=== PATIENT | female | born 1980 | race Caucasian/White ===

== ENCOUNTER 2016-06-21 08:27 | Outpatient (CLI) | payer OTHER | END 2016-06-21 23:00 | LOC: LAB SRH 08:27 | DX: Z34.82 Encounter for supervision of other normal pregnancy, second trimester (principal) | CPT/HCPCS: 90039; 90074; 91162; 91163 ==

== ENCOUNTER 2016-09-13 19:00 | Inpatient (IN) | payer BC, OTHER ==
[~2016-09-13] VITALS: Ht 165.1 cm; Wt 75.7 kg
[2016-09-13] MEDS ORDERED: PRENATA1 CHW PO (20:33)
[2016-09-14] VITALS (11 sets, daily range): BP systolic 120–148; BP diastolic 55–100
[2016-09-15 00:30] VITALS: BP 128/58
--- NOTE | 2016-09-15 01:53 | NUR ---
TRANSFERED FROM LABOR AND DELIVERY ROOM 321 TO ROOM 319
[2016-09-15 03:32] VITALS: BP 114/67
[2016-09-15 08:10] VITALS: BP 111/54
[2016-09-15 16:10] VITALS: BP 121/78
--- NOTE | 2016-09-15 18:54 | Provider's Discharge Care Plan ---
Problem, Goal, Plan Problem List 1. Elective induction of labor planned 2. Vaginal delivery Goals: Improve disease control Instructions: Follow up as needed
--- NOTE | 2016-09-15 18:54 | Provider's Discharge Care Plan ---
Problem, Goal, Plan Problem List 1. Elective induction of labor planned 2. Vaginal delivery Goals: Improve disease control Instructions: Follow up as needed
--- NOTE | 2016-09-15 21:25 | NUR ---
PATIENT D/C HOME WITH NB AND SIGNIFICANT OTHER. IV D/C'D CATHETER INTACT. D/C TEACHING AND PAPERWORK DONE. PATIENT VERBALIZES UNDERSTANDING OF INSTRUCTIONS AND WILL FOLLOW UP WITH MD OR NEEDED.
== END 2016-09-15 21:25 | disposition home or self-care (01) | DRG 775 ==
LOC: OB SRH 19:00
PROVIDERS: ADMIT Obstetrics & Gynecology
PROC: 3E033VJ Introduction of Other Hormone into Peripheral Vein, Percutaneous Approach (ICD-10-PCS; 2016-09-13)
PROC: 10E0XZZ Delivery of Products of Conception, External Approach (ICD-10-PCS; principal; 2016-09-14)
DX: O48.0 Post-term pregnancy (principal); Z37.0 Single live birth; Z3A.40 40 weeks gestation of pregnancy
CPT/HCPCS: 40011; 40021; 83475; 90074; 90600; 90605; 90606; 91162; 91163; 95059